=== PATIENT | female | born 1990 | race American Indian/Alaskan Native ===

== ENCOUNTER 2019-01-28 18:14 | Emergency (ER) | payer MEDICAID ==
--- NOTE | 2019-01-28 18:24 | Event Note ---
ED Screening Note Date of service: 01/28/19 Time: 18:21 ED Screening Note: This is a 28 y.o. M. that presents to the ER with SOB and difficulty breathing for 2 days. PMH of asthma Reports URI for 1 week. Increased use of inhaler and taking OTC cold and flu medication. LMP 01/26/2019 This initial assessment/diagnostic orders/clinical plan/treatment(s) is/are subject to change based on patients health status, clinical progression and re- assessment by fellow clinical providers in the ED. Further treatment and workup at subsequent clinical providers discretion. Patient/guardian urged not to elope from the ED as their condition may be serious if not clinically assessed and managed. Initial orders include: CXR
--- NOTE | 2019-01-28 19:18 | XRay Report ---
CHEST 2 VIEWS INDICATION / CLINICAL INFORMATION: cough and shortness of breath. COMPARISON: None available. FINDINGS: SUPPORT DEVICES: None. On one of the PA views, several foreign bodies external to the patient were in cluded. These were removed prior to acquisition of the second PA chest radiograph. HEART / MEDIASTINUM: No significant abnormality. LUNGS / PLEURA: No significant pulmonary or pleural abnormality. No pneumothorax. ADDITIONAL FINDINGS: No significant additional findings. IMPRESSION: 1. No acute findings. Signer Name: Cleveland Sharma MD Signed: 01/28/2019 7:14 PM Workstation Name: [id number]
[2019-01-28] MEDS ORDERED: TYLENOL PO ONE (19:31)
[2019-01-28] MEDS ORDERED: PROVENTIL IH ONE (19:31)
[2019-01-28] MEDS ORDERED: SOLU-Medrol IM ONE (19:31)
--- NOTE | 2019-01-28 20:48 | Emergency Department Report ---
- General Chief Complaint: Adult Asthma Stated Complaint: CONGESTION/DI Time Seen by Provider: 01/28/19 18:21 Source: patient Mode of arrival: Ambulatory Limitations: No Limitations - History of Present Illness Initial Comments: Patient is a 28 yo AA female with a h/o Asthma who presents to the ED with c/o acute onset persistent nasal and sinus congestion, frontal sinus headache and pressure, severe sore throat, dry cough, with intermittent wheezing and pleuritic chest wall pain for the last 2 days, worse in the last 12 hours. Patient denies dizziness, fever, chills, vision changes, neck pain, abdominal pain, nausea, vomiting, or back pain and dysuria MD Complaint: cough, sore throat, rhinorrhea, nasal congestion, sinus pain -: Sudden (2) Severity: severe Severity scale (0 -10): 7 Quality: sharp, aching Consistency: constant Improves With: nothing Worsens With: nothing Context: sick contacts Associated Symptoms: denies other symptoms, chills, myalgias, headache, rhinorrhea, nasal congestion, sore throat, cough, shortness of breath. denies: abdominal pain, nausea, vomiting, diarrhea Treatments Prior to Arrival: none - Related Data Previous Rx's Medication Instructions Recorded Last Taken Type Amoxicillin [Trimox CAP] 500 mg PO Q8H #30 capsule 01/28/19 Unknown Rx Benzonatate [Tessalon Perles] 100 mg PO Q8HR #30 capsule 01/28/19 Unknown Rx Ibuprofen [Motrin] 800 mg PO Q8HR PRN #20 tablet 01/28/19 Unknown Rx methylPREDNISolone [Medrol 4MG 4 mg PO DAILY #21 tab.ds.pk 01/28/19 Unknown Rx DOSEPAK (21 tabs)] Allergies Allergy/AdvReac Type Severity Reaction Status Date / Time No Known Allergies Allergy Unverified 01/28/19 18:15 ED Review of Systems ROS: Stated complaint: CONGESTION/DI Other details as noted in HPI Constitutional: denies: chills, fever Eyes: denies: eye pain, eye discharge, vision change ENT: throat pain, congestion. denies: ear pain Respiratory: cough, shortness of breath. denies: SOB with exertion, SOB at rest, stridor, wheezing Cardiovascular: chest pain (pleuritic). denies: palpitations, edema, syncope, paroxysmal nocturnal dyspnea Endocrine: no symptoms reported Gastrointestinal: denies: abdominal pain, nausea, diarrhea Genitourinary: denies: urgency, dysuria, discharge Musculoskeletal: myalgia. denies: back pain, joint swelling, arthralgia Skin: denies: rash, lesions Neurological: denies: headache, weakness, paresthesias Psychiatric: denies: anxiety, depression Hematological/Lymphatic: denies: easy bleeding, easy bruising ED Past Medical Hx - Past Medical History Previous Medical History?: Yes Hx Asthma: Yes - Surgical History Past Surgical History?: No - Social History Smoking Status: Never Smoker Substance Use Type: Alcohol - Medications Home Medications: Home Medications Medication Instructions Recorded Confirmed Last Taken Type Amoxicillin [Trimox CAP] 500 mg PO Q8H #30 capsule 01/28/19 Unknown Rx Benzonatate [Tessalon Perles] 100 mg PO Q8HR #30 capsule 01/28/19 Unknown Rx Ibuprofen [Motrin] 800 mg PO Q8HR PRN #20 tablet 01/28/19 Unknown Rx methylPREDNISolone [Medrol 4MG 4 mg PO DAILY #21 tab.ds.pk 01/28/19 Unknown Rx DOSEPAK (21 tabs)] ED Physical Exam - General Limitations: No Limitations General appearance: alert, in no apparent distress - Head Head exam: Present: atraumatic, normocephalic, normal inspection - Eye Eye exam: Present: normal appearance, PERRL, EOMI. Absent: scleral icterus, conjunctival injection, nystagmus, periorbital swelling, periorbital tenderness - ENT ENT exam: Present: normal exam, normal orophraynx, mucous membranes moist, TM's normal bilaterally, normal external ear exam, other (Grossly congested nasal passages) - Neck Neck exam: Present: normal inspection, full ROM. Absent: tenderness, meningismus, lymphadenopathy, thyromegaly - Respiratory Respiratory exam: Present: normal lung sounds bilaterally, wheezes (Mildly diffuse wheezes), chest wall tenderness. Absent: respiratory distress, rales, rhonchi, stridor, accessory muscle use, decreased breath sounds, prolonged expiratory - Cardiovascular Cardiovascular Exam: Present: normal rhythm, tachycardia, normal heart sounds. Absent: systolic murmur, diastolic murmur, rubs, gallop - GI/Abdominal GI/Abdominal exam: Present: soft, normal bowel sounds. Absent: tenderness, guarding, hyperactive bowel sounds, hypoactive bowel sounds, organomegaly, bruit - Rectal Rectal exam: Present: deferred - Extremities Exam Extremities exam: Present: normal inspection, full ROM, normal capillary refill - Back Exam Back exam: Present: normal inspection, full ROM. Absent: tenderness, CVA tenderness (R), CVA tenderness (L), muscle spasm - Neurological Exam Neurological exam: Present: alert, oriented X3, CN II-XII intact, normal gait, reflexes normal - Psychiatric Psychiatric exam: Present: normal affect, normal mood - Skin Skin exam: Present: warm, dry, intact, normal color. Absent: rash ED Course Vital Signs 01/28/19 01/28/19 18:21 19:40 Temperature 99.4 F Pulse Rate 111 H Respiratory 22 16 Rate Blood Pressure 128/82 O2 Sat by Pulse 97 Oximetry - Reevaluation(s) Reevaluation #1: 01/28/19 20:53 Patient is alert and oriented x 3 and is in no acute distress but tachycardic in triage due to the fact that the patient used Albuterol inhaler prior to arrival in the ED. Patient was treated in the ED with pain medications, solumedrol and albuterol nebulizers. Chest x-ray shows no acute cardiopulmonary abnormalities. On reevaluation, patient's symptoms have improved and patient was discharged home on medications, and advised to follow up with her PCP in 5-7 days for reevaluation. Patient was advised to return to the ED immediately if symptoms get worse. ED Medical Decision Making - Radiology Data Radiology results: report reviewed, image reviewed Chest x-ray: No acute cardiopulmonary abnormalities - Medical Decision Making Patient is alert and oriented x 3 and is in no acute distress but tachycardic in triage due to the fact that the patient used Albuterol inhaler prior to arrival in the ED. Patient was treated in the ED with pain medications, solumedrol and albuterol nebulizers. Chest x-ray shows no acute cardiopulmonary abnormalities. On reevaluation, patient's symptoms have improved and patient was discharged home on medications, and advised to follow up with her PCP in 5-7 days for reevaluation. Patient was advised to return to the ED immediately if symptoms get worse. - Differential Diagnosis Sinusitis, bronchitis, pharyngitis, asthma attack, bronchitis Critical care attestation.: If time is entered above; I have spent that time in minutes in the direct care of this critically ill patient, excluding procedure time. ED Disposition Clinical Impression: Acute upper respiratory infection, Acute bacterial sinusitis, Acute asthmatic bronchitis Acute pharyngitis Qualifiers: Pharyngitis/tonsillitis etiology: unspecified etiology Qualified Code(s): J02.9 - Acute pharyngitis, unspecified Disposition: TO HOME OR SELFCARE Is pt being admited?: No Does the pt Need Aspirin: No Condition: Stable Instructions: Acute Bronchitis (ED), Sinusitis (ED), Asthma (ED), Pharyngitis (ED) Additional Instructions: TAKE MEDICATIONS WITH FOOD, DRINK PLENTY OF FLUIDS AND FOLLOW UP WITH YOUR PRIMARY CARE PHYSICIAN IN 5-7 DAYS FOR REEVALUATION. RETURN TO THE ED IMMEDIATELY IF SYMPTOMS GET WORSE. Prescriptions: methylPREDNISolone [Medrol 4MG DOSEPAK (21 tabs)] 4 mg PO DAILY #21 tab.ds.pk Ibuprofen [Motrin] 800 mg PO Q8HR PRN #20 tablet PRN Reason: Pain , Severe (7-10) Benzonatate [Tessalon Perles] 100 mg PO Q8HR #30 capsule Amoxicillin [Trimox CAP] 500 mg PO Q8H #30 capsule Referrals: [facility] [Outside] - 3-5 Days Time of Disposition: 20:45 Print Language: GERMAN
[2019-01-28 21:42] VITALS: BP 127/80
== END 2019-01-28 21:08 | disposition home or self-care (01) ==
LOC: ED 18:14
DX: J01.80 Other acute sinusitis (principal); B96.89 Other specified bacterial agents as the cause of diseases classified elsewhere; J20.9 Acute bronchitis, unspecified; J06.9 Acute upper respiratory infection, unspecified; J02.9 Acute pharyngitis, unspecified; J45.909 Unspecified asthma, uncomplicated; Z79.899 Other long term (current) drug therapy
CPT/HCPCS: 71046; 87116; 87430; 94640; 96372; 99284; J2930